=== PATIENT | female | born 1995 | race Caucasian/White ===

== ENCOUNTER 2017-01-22 18:13 | Emergency (ER) | payer OTHER ==
[~2017-01-22] VITALS: Ht 167.6 cm; Wt 118.0 kg
[~2017-01-22 18:13] MED LIST: NOCURR
[2017-01-22 18:22] VITALS: BP 124/71
== END 2017-01-22 20:30 | disposition left against medical advice (07) ==
LOC: EMS 18:15
DX: R10.9 Unspecified abdominal pain (principal); R11.0 Nausea; M54.5 Low back pain; Z53.21 Procedure and treatment not carried out due to patient leaving prior to being seen by health care provider